=== PATIENT | female | born 1935 | race Caucasian/White ===

== ENCOUNTER 2018-01-30 15:51 | Observation (INO) | payer MEDICARE ==
[2018-01-30] MEDS ORDERED: SODIUM CHLORIDE 0.9% 1,000 ML IV ONE (16:36)
--- NOTE | 2018-01-30 16:39 | ED ---
General Adult HPI - General Chief complaint: Recheck/Abnormal Lab/Rx Stated complaint: Altered mental status Time Seen by Provider: 01/30/18 16:14 Source: patient, EMS, RN notes reviewed Mode of arrival: EMS Limitations: no limitations - History of Present Illness Initial comments: Patient is a pleasant 82-year-old female presenting to the emergency Department with complaints of change in mental status. Majority of history is taken from the family. Patient reportedly was confused and they were sitting down for a meal. Symptoms lasted close to a half an hour and then they called EMS. Patient seems to be doing fine at this time. Family was asking the patient questions and she would not respond or respond inappropriately. Patient states she felt like she could not hear them. Patient was alert the whole time. EMS found blood sugar of 60. Patient has had low blood sugar previously without similar confusion. No isolated area of weakness. - Related Data Home Medications Medication Instructions Recorded Confirmed Calcium Carbonate 500 mg PO DAILY 01/30/18 01/30/18 Cyanocobalamin [Vitamin B-12] 500 mcg PO DAILY 01/30/18 01/30/18 Donepezil HCl [Aricept] 5 mg PO DAILY 01/30/18 01/30/18 Ergocalciferol [Vitamin D2] 50,000 unit PO Q30D 01/30/18 01/30/18 Ferrous Sulfate [Feosol] 325 mg PO BID 01/30/18 01/30/18 L.acidoph,Paracasei, B.lactis 1 cap PO DAILY 01/30/18 01/30/18 [Probiotic] Losartan [Cozaar] 25 mg PO DAILY 01/30/18 01/30/18 Magnesium Oxide [Baum] 500 mg PO DAILY 01/30/18 01/30/18 Pravastatin Sodium [Pravachol] 40 mg PO DAILY 01/30/18 01/30/18 Rivaroxaban [Xarelto] 15 mg PO DAILY 01/30/18 01/30/18 cycloSPORINE [Restasis] 1 drop BOTH EYES BID 01/30/18 01/30/18 Allergies Allergy/AdvReac Type Severity Reaction Status Date / Time allopurinol Allergy Unknown Verified 01/30/18 16:52 febuxostat [From Uloric] Allergy Unknown Verified 01/30/18 16:52 levofloxacin [From Levaquin] Allergy Unknown Verified 01/30/18 16:52 Sulfa (Sulfonamide Allergy Unknown Verified 01/30/18 16:52 Antibiotics) Review of Systems ROS Statement: Those systems with pertinent positive or pertinent negative responses have been documented in the HPI. ROS Other: All systems not noted in ROS Statement are negative. Constitutional: Denies: fever Eyes: Denies: eye pain ENT: Denies: ear pain Respiratory: Denies: cough Cardiovascular: Denies: chest pain Endocrine: Denies: fatigue Gastrointestinal: Denies: abdominal pain Genitourinary: Denies: dysuria Musculoskeletal: Denies: back pain Skin: Denies: rash Neurological: Reports: confusion. Denies: weakness Past Medical History Past Medical History: Diabetes Mellitus, Hyperlipidemia, Hypertension Past Surgical History: Orthopedic Surgery Past Psychological History: No Psychological Hx Reported Smoking Status: Never smoker Past Alcohol Use History: None Reported Past Drug Use History: None Reported General Exam Limitations: no limitations General appearance: alert, in no apparent distress Head exam: Present: atraumatic Eye exam: Present: normal appearance, PERRL, EOMI ENT exam: Present: normal oropharynx Neck exam: Present: normal inspection Respiratory exam: Present: normal lung sounds bilaterally Cardiovascular Exam: Present: regular rate, normal rhythm Expanded Peripheral pulses: 2+: Radial (R), Radial (L), Dorsalis Pedis (R), Dorsalis Pedis (L) GI/Abdominal exam: Present: soft. Absent: tenderness Extremities exam: Present: normal inspection Neurological exam: Present: alert, oriented X3, CN II-XII intact. Absent: motor sensory deficit Expanded Neurological exam: Present: protecting the airway Patient oriented to: Present: person, place, time Speech: Present: fluid speech Cranial nerves: EOM's Intact: Normal, Facial Sensation: Normal Cerebellar function: Finger to Nose: Normal Sensory exam: Upper Extremity Light Touch: Normal, Lower Extremity Light Touch: Normal Motor strength exam: RUE: 5, LUE: 5, RLE: 5, LLE: 5 Eye Response: (4) open spontaneously Motor Response: (6) obeys commands Verbal Response: (5) oriented Psychiatric exam: Present: normal affect, normal mood Skin exam: Present: normal color Course Vital Signs 01/30/18 01/30/18 15:59 18:04 Temperature 97.6 F 98.2 F Pulse Rate 81 81 Respiratory 18 18 Rate Blood Pressure 151/53 159/64 O2 Sat by Pulse 99 97 Oximetry Medical Decision Making - Medical Decision Making Patient reevaluated and resting comfortably in bed. Patient and family updated. Daughter is convinced that symptoms are not related to hypoglycemia secondary to patient having long-standing diabetes and previous blood sugars in the 60s without similar problems. Case was discussed in detail with Dr. guillory, who will admit covered for Dr. arnett, who admits for Dr. Bernal. - Lab Data Result diagrams: 01/30/18 16:11 01/30/18 16:11 Lab Results 01/30/18 01/30/18 01/30/18 Range/Units 16:10 16:11 16:11 WBC 10.2 (3.8-10.6) k/uL RBC 3.49 L (3.80-5.40) m/uL Hgb 10.8 L (11.4-16.0) gm/dL Hct 33.2 L (34.0-46.0) % MCV 95.3 (80.0-100.0) fL MCH 31.0 (25.0-35.0) pg MCHC 32.5 (31.0-37.0) g/dL RDW 14.1 (11.5-15.5) % Plt Count 183 (150-450) k/uL Neutrophils % 85 % Lymphocytes % 10 % Monocytes % 4 % Eosinophils % 1 % Basophils % 0 % Neutrophils # 8.7 H (1.3-7.7) k/uL Lymphocytes # 1.0 (1.0-4.8) k/uL Monocytes # 0.4 (0-1.0) k/uL Eosinophils # 0.1 (0-0.7) k/uL Basophils # 0.0 (0-0.2) k/uL PT (9.0-12.0) sec INR (<1.2) APTT (22.0-30.0) sec Sodium (137-145) mmol/L Potassium (3.5-5.1) mmol/L Chloride (98-107) mmol/L Carbon Dioxide (22-30) mmol/L Anion Gap mmol/L BUN (7-17) mg/dL Creatinine (0.52-1.04) mg/dL Est GFR (CKD-EPI)AfAm (>60 ml/min/1.73 sqM) Est GFR (CKD-EPI)NonAf (>60 ml/min/1.73 sqM) Glucose (74-99) mg/dL POC Glucose (mg/dL) 120 H (75-99) mg/dL POC Glu [employer] Homa Larson Calcium (8.4-10.2) mg/dL Total Bilirubin (0.2-1.3) mg/dL AST (14-36) U/L ALT (9-52) U/L Alkaline Phosphatase (38-126) U/L Total Creatine Kinase 97 (30-135) U/L CK-MB (CK-2) 3.7 H (0.0-2.4) ng/mL CK-MB (CK-2) Rel Index 3.8 Troponin I 0.020 (0.000-0.034) ng/mL Total Protein (6.3-8.2) g/dL Albumin (3.5-5.0) g/dL Urine Color Urine Appearance (Clear) Urine pH (5.0-8.0) Ur Specific [place] (1.001-1.035) Urine Protein (Negative) Urine Glucose (UA) (Negative) Urine Ketones (Negative) Urine Blood (Negative) Urine Nitrite (Negative) Urine Bilirubin (Negative) Urine Urobilinogen (<2.0) mg/dL Ur Leukocyte Esterase (Negative) Urine Opiates Screen (NotDetected) Ur Oxycodone Screen (NotDetected) Urine Methadone Screen (NotDetected) Ur Propoxyphene Screen (NotDetected) Ur Barbiturates Screen (NotDetected) U Tricyclic Antidepress (NotDetected) Ur Phencyclidine Scrn (NotDetected) Ur Amphetamines Screen (NotDetected) U Methamphetamines Scrn (NotDetected) U Benzodiazepines Scrn (NotDetected) Urine Cocaine Screen (NotDetected) U Marijuana (THC) Screen (NotDetected) 01/30/18 01/30/18 01/30/18 Range/Units 16:11 16:11 16:51 WBC (3.8-10.6) k/uL RBC (3.80-5.40) m/uL Hgb (11.4-16.0) gm/dL Hct (34.0-46.0) % MCV (80.0-100.0) fL MCH (25.0-35.0) pg MCHC (31.0-37.0) g/dL RDW (11.5-15.5) % Plt Count (150-450) k/uL Neutrophils % % Lymphocytes % % Monocytes % % Eosinophils % % Basophils % % Neutrophils # (1.3-7.7) k/uL Lymphocytes # (1.0-4.8) k/uL Monocytes # (0-1.0) k/uL Eosinophils # (0-0.7) k/uL Basophils # (0-0.2) k/uL PT 12.1 H (9.0-12.0) sec INR 1.3 H (<1.2) APTT 23.6 (22.0-30.0) sec Sodium 142 (137-145) mmol/L Potassium 4.2 (3.5-5.1) mmol/L Chloride 107 (98-107) mmol/L Carbon Dioxide 25 (22-30) mmol/L Anion Gap 10 mmol/L BUN 28 H (7-17) mg/dL Creatinine 0.95 (0.52-1.04) mg/dL Est GFR (CKD-EPI)AfAm 66 (>60 ml/min/1.73 sqM) Est GFR (CKD-EPI)NonAf 57 (>60 ml/min/1.73 sqM) Glucose 96 (74-99) mg/dL POC Glucose (mg/dL) (75-99) mg/dL POC Glu [employer] ID Calcium 9.6 (8.4-10.2) mg/dL Total Bilirubin 0.3 (0.2-1.3) mg/dL AST 43 H (14-36) U/L ALT 34 (9-52) U/L Alkaline Phosphatase 40 (38-126) U/L Total Creatine Kinase (30-135) U/L CK-MB (CK-2) (0.0-2.4) ng/mL CK-MB (CK-2) Rel Index Troponin I (0.000-0.034) ng/mL Total Protein 6.5 (6.3-8.2) g/dL Albumin 3.8 (3.5-5.0) g/dL Urine Color Urine Appearance (Clear) Urine pH (5.0-8.0) Ur Specific [place] (1.001-1.035) Urine Protein (Negative) Urine Glucose (UA) (Negative) Urine Ketones (Negative) Urine Blood (Negative) Urine Nitrite (Negative) Urine Bilirubin (Negative) Urine Urobilinogen (<2.0) mg/dL Ur Leukocyte Esterase (Negative) Urine Opiates Screen Not Detected (NotDetected) Ur Oxycodone Screen Not Detected (NotDetected) Urine Methadone Screen Not Detected (NotDetected) Ur Propoxyphene Screen Not Detected (NotDetected) Ur Barbiturates Screen Not Detected (NotDetected) U Tricyclic Antidepress Not Detected (NotDetected) Ur Phencyclidine Scrn Not Detected (NotDetected) Ur Amphetamines Screen Not Detected (NotDetected) U Methamphetamines Scrn Not Detected (NotDetected) U Benzodiazepines Scrn Not Detected (NotDetected) Urine Cocaine Screen Not Detected (NotDetected) U Marijuana (THC) Screen Not Detected (NotDetected) 01/30/18 Range/Units 16:51 WBC (3.8-10.6) k/uL RBC (3.80-5.40) m/uL Hgb (11.4-16.0) gm/dL Hct (34.0-46.0) % MCV (80.0-100.0) fL MCH (25.0-35.0) pg MCHC (31.0-37.0) g/dL RDW (11.5-15.5) % Plt Count (150-450) k/uL Neutrophils % % Lymphocytes % % Monocytes % % Eosinophils % % Basophils % % Neutrophils # (1.3-7.7) k/uL Lymphocytes # (1.0-4.8) k/uL Monocytes # (0-1.0) k/uL Eosinophils # (0-0.7) k/uL Basophils # (0-0.2) k/uL PT (9.0-12.0) sec INR (<1.2) APTT (22.0-30.0) sec Sodium (137-145) mmol/L Potassium (3.5-5.1) mmol/L Chloride (98-107) mmol/L Carbon Dioxide (22-30) mmol/L Anion Gap mmol/L BUN (7-17) mg/dL Creatinine (0.52-1.04) mg/dL Est GFR (CKD-EPI)AfAm (>60 ml/min/1.73 sqM) Est GFR (CKD-EPI)NonAf (>60 ml/min/1.73 sqM) Glucose (74-99) mg/dL POC Glucose (mg/dL) (75-99) mg/dL POC Glu [employer] ID Calcium (8.4-10.2) mg/dL Total Bilirubin (0.2-1.3) mg/dL AST (14-36) U/L ALT (9-52) U/L Alkaline Phosphatase (38-126) U/L Total Creatine Kinase (30-135) U/L CK-MB (CK-2) (0.0-2.4) ng/mL CK-MB (CK-2) Rel Index Troponin I (0.000-0.034) ng/mL Total Protein (6.3-8.2) g/dL Albumin (3.5-5.0) g/dL Urine Color Colorless Urine Appearance Clear (Clear) Urine pH 5.5 (5.0-8.0) Ur Specific [place] 1.004 (1.001-1.035) Urine Protein Negative (Negative) Urine Glucose (UA) Negative (Negative) Urine Ketones Negative (Negative) Urine Blood Negative (Negative) Urine Nitrite Negative (Negative) Urine Bilirubin Negative (Negative) Urine Urobilinogen <2.0 (<2.0) mg/dL Ur Leukocyte Esterase Negative (Negative) Urine Opiates Screen (NotDetected) Ur Oxycodone Screen (NotDetected) Urine Methadone Screen (NotDetected) Ur Propoxyphene Screen (NotDetected) Ur Barbiturates Screen (NotDetected) U Tricyclic Antidepress (NotDetected) Ur Phencyclidine Scrn (NotDetected) Ur Amphetamines Screen (NotDetected) U Methamphetamines Scrn (NotDetected) U Benzodiazepines Scrn (NotDetected) Urine Cocaine Screen (NotDetected) U Marijuana (THC) Screen (NotDetected) - Radiology Data Radiology results: report reviewed (Computed tomography scan of the brain shows no acute process. Atrophy is present.), image reviewed (Shows no heart failure. Coarse lung markings probably due to pulmonary fibrosis) Disposition Clinical Impression: Altered mental status Disposition: ADMITTED IP TO THIS HOSP Is patient prescribed a controlled substance at d/c from ED?: No Referrals: Richard Bernal MD [Primary Care Provider] - 1-2 days Decision Time: 18:25
[2018-01-30 16:50] LABS: Basophils % (A) 0 %; Eosinophils # (A) 0.1 k/uL (0-0.7); Eosinophils % (A) 1 %; HCT 33.2 % (34.0-46.0); HGB 10.8 gm/dL (11.4-16.0); Lymphocytes % (A) 10 %; MCHC 32.5 g/dL (31.0-37.0); MCV 95.3 fL (80.0-100.0); Mean Platelet Volume 7.4; Monocytes # (A) 0.4 k/uL (0-1.0); Monocytes % (A) 4 %; Neutrophils # (A) 8.7 k/uL (1.3-7.7); Neutrophils % (A) 85 %; Platelet Count 183 k/uL (150-450); RBC 3.49 m/uL (3.80-5.40); RDW 14.1 % (11.5-15.5); WBC 10.2 k/uL (3.8-10.6)
[2018-01-30 16:53] LABS: Glucose,Whole Blood 120 mg/dL (75-99)
[2018-01-30 16:58] LABS: INR 1.3 (<1.2); Partial Thromboplastin Time 23.6 sec (22.0-30.0); Prothrombin Time 12.1 sec (9.0-12.0)
[2018-01-30 16:59] LABS: Albumin 3.8 g/dL (3.5-5.0); Calcium 9.6 mg/dL (8.4-10.2); Potassium 4.2 mmol/L (3.5-5.1); Total Bilirubin 0.3 mg/dL (0.2-1.3); Total Protein 6.5 g/dL (6.3-8.2)
[2018-01-30 17:02] LABS: Appearance,Urine Clear (Clear); Bilirubin,Urine Negative (Negative); Blood,Urine Negative (Negative); Color,Urine Colorless; Glucose,Urine (UA) Negative (Negative); Ketones,Urine Negative (Negative); Leukocyte Esterase,Urine Negative (Negative); Nitrite,Urine Negative (Negative); PH, Urine 5.5 (5.0-8.0); Protein,Urine Negative (Negative); Specific Gravity,Urine 1.004 (1.001-1.035); Urobilinogen,Urine <2.0 mg/dL (<2.0)
[2018-01-30 17:11] LABS: Amphetamine Screen,Urine Not Detected (NotDetected); Barbiturate Screen,Urine Not Detected (NotDetected); Benzodiazepines Screen,Urine Not Detected (NotDetected); Cocaine Screen,Urine Not Detected (NotDetected); Methadone Screen, Urine Not Detected (NotDetected); Opiate Screen,Urine Not Detected (NotDetected); Oxycodone Screen, Urine Not Detected (NotDetected); Phencyclidine Screen,Urine Not Detected (NotDetected); Tricyclic Antidepressant,Urine Not Detected (NotDetected); Urn Cannabinoid Scrn Not Detected (NotDetected)
[2018-01-30 17:26] LABS: Creatine Kinase MB 3.7 ng/mL (0.0-2.4); Troponin I 0.02 ng/mL (0.000-0.034)
--- NOTE | 2018-01-30 17:28 | CT ---
EXAMINATION TYPE: CT brain wo con DATE OF EXAM: 01/30/2018 COMPARISON: None HISTORY: ams, confusion CT DLP: 981.7 mGycm Automated exposure control for dose reduction was used. FINDINGS: There is cerebral cortical atrophy. There is no mass effect nor midline shift. There is no sign of in tracranial hemorrhage. The calvarium is intact. IMPRESSION: NEGATIVE CT SCAN OF THE BRAIN. CEREBRAL ATROPHY.
--- NOTE | 2018-01-30 17:36 | XR ---
EXAMINATION TYPE: XR chest 2V DATE OF EXAM: 01/30/2018 COMPARISON: November 13, 2009 HISTORY: Confusion TECHNIQUE: Frontal and lateral views of the chest are obtained. FINDINGS: Heart is normal. There is coarsening of interstitial pulmonary markings. There is no pulmo nary consolidation. Costophrenic angles are clear. Thoracic aorta is atheromatous. IMPRESSION: No heart failure. Coarse lung markings probably due to pulmonary fibrosis that has progr essed compared to old exam. Acute interstitial pneumonia is possible.
[2018-01-30] MEDS ORDERED: SODIUM CHLORIDE 0.9% 500 ML IV STA (17:51)
[2018-01-30] MEDS ORDERED: ASPIRIN 325 MG TAB PO STA (18:25)
[2018-01-30] MEDS: SODIUM CHLORIDE 0.9% 1,000 ML IV SCH (19:23)
[2018-01-30] MEDS ORDERED: ACETAMINOPHEN TAB 325 MG TAB PO STA (20:06)
--- NOTE | 2018-01-30 20:09 | US ---
EXAMINATION TYPE: US carotid duplex BILAT DATE OF EXAM: 01/30/2018 COMPARISON: NONE CLINICAL HISTORY: Stenosis. Stenosis TIA EXAM MEASUREMENTS: RIGHT: Peak Systolic Velocity (PSV) cm/sec ----- Right CCA: 72.6 ----- Right ICA: 153.1 ----- Right ECA: 102.3 ICA/CCA ratio: 2.1 RIGHT: End Diastole cm/sec ----- Right CCA: 17.3 ----- Right ICA: 36.9 ----- Right ECA: 0 LEFT: Peak Systolic Velocity (PSV) cm/sec ----- Left CCA: 78.4 ----- Left ICA: 101.6 ----- Left ECA: 80.6 ICA/CCA ratio: 1.3 LEFT: End Diastole cm/sec ----- Left CCA: 17.3 ----- Left ICA: 27.3 ----- Left ECA: 0 VERTEBRALS (direction of flow): Right Vertebral: Antegrade Left Vertebral: Antegrade Rhythm: Plaque Right bulb and Prox ICA. Elevated velocities in Right ICA. IMPRESSION: There is an elevated velocity at the right internal carotid artery thought to be due to inaccurate elevated Doppler angle. No significant plaque is seen. There is antegrade flow in the vertebral arteries. Images and measurements suggest less than 50% stenosis in both internal carotid arteries. Criteria for Assigning % of Stenosis / Diameter reduction (Estimation based on the indirect measurements of the internal carotid artery velocities (ICA PSV). 1. Normal (no stenosis)=ICA PSV < 125 cm/s: ratio < 2.0: ICA EDV<40 cm/s. 2. Less than 50% stenosis=ICA PSV < 125 cm/s: ratio < 2.0: ICA EDV<40 cm/s. 3. 50 to 69% stenosis=ICA PSV of 125 to 230 cm/s: ration 2.0 ? 4.0: ICA EDV 40-100 cm/s. 4. Greater than 70% stenosis to near occlusion= ICA PSV > 230 cm/s: ratio > 4.0: ICA EDV > 100 cm/s. 5. Near occlusion= ICA PSV velocities may be low or undetectable: variable ratio and ICA EDV. 6. Total occlusion=unable to detect flow.
[2018-01-30 20:17] LABS: Glucose,Whole Blood 158 mg/dL (75-99)
[2018-01-30] MEDS ORDERED: NALOXONE 0.4 MG/ML 1 ML VIAL IV PRN (21:42)
--- NOTE | 2018-01-30 22:05 | P.HPIM ---
History of Present Illness H&P Date: 01/30/18 Chief Complaint: confusion 82-year-old female with history of diabetes pump, hypertension, venous thromboembolism with urology. Patient was on a road trip with family when they stopped for lunch today. Family noticed that she was slightly confused that lasted over 30 minutes for which they called EMS who was later found her to have low blood sugar at around 60. Family was concerned regarding a stroke as they reported patient usually has low blood sugars in the 60s without any symptoms. Patient was having some difficulty walking along with confusion while sitting down having lunch at 2 PM with the family she reports that symptoms completely resolved after about 1 hour. Otherwise patient denies any focal neurologic deficits like numbness tingling or weakness anywhere. She denies any similar symptoms in the past. Denies any history of stroke. Currently patient feels completely fine and back to normal. She denies any chest pain or trouble breathing denies any coughing denies any fevers or chills. She denies any GI bleeding or melena. Further workup in the ED showed CAT scan of the brain no acute process, carotid Doppler showed no significant plaques bilaterally. Review of Systems Pertinent positives as noted in HPI. All other systems were reviewed and are negative Past Medical History Past Medical History: Diabetes Mellitus, Deep Vein Thrombosis (DVT), Hyperlipidemia, Hypertension Past Surgical History: Orthopedic Surgery Additional Past Surgical History / Comment(s): right knee replacement Past Psychological History: No Psychological Hx Reported Smoking Status: Never smoker Past Alcohol Use History: None Reported Past Drug Use History: None Reported - Past Family History family Additional Family Medical History / Comment(s): denies history of CAD or stroke Medications and Allergies Home Medications Medication Instructions Recorded Confirmed Type Calcium Carbonate 500 mg PO DAILY 01/30/18 01/30/18 History Cyanocobalamin [Vitamin B-12] 500 mcg PO DAILY 01/30/18 01/30/18 History Donepezil HCl [Aricept] 5 mg PO DAILY 01/30/18 01/30/18 History Ergocalciferol [Vitamin D2] 50,000 unit PO Q30D 01/30/18 01/30/18 History Ferrous Sulfate [Feosol] 325 mg PO BID 01/30/18 01/30/18 History L.acidoph,Paracasei, B.lactis 1 cap PO DAILY 01/30/18 01/30/18 History [Probiotic] Losartan [Cozaar] 25 mg PO DAILY 01/30/18 01/30/18 History Magnesium Oxide [Baum] 500 mg PO DAILY 01/30/18 01/30/18 History Pravastatin Sodium [Pravachol] 40 mg PO DAILY 01/30/18 01/30/18 History Rivaroxaban [Xarelto] 15 mg PO DAILY 01/30/18 01/30/18 History cycloSPORINE [Restasis] 1 drop BOTH EYES BID 01/30/18 01/30/18 History Allergies Allergy/AdvReac Type Severity Reaction Status Date / Time allopurinol Allergy Unknown Verified 01/30/18 16:52 febuxostat [From Uloric] Allergy Unknown Verified 01/30/18 16:52 levofloxacin [From Levaquin] Allergy Unknown Verified 01/30/18 16:52 Sulfa (Sulfonamide Allergy Unknown Verified 01/30/18 16:52 Antibiotics) Physical Exam Vitals: Vital Signs Temp Pulse Resp BP Pulse Ox 01/30/18 18:04 98.2 F 81 18 159/64 97 01/30/18 15:59 97.6 F 81 18 151/53 99 Intake and Output 01/30/18 01/30/18 01/30/18 06:59 14:59 22:59 Other: Weight 71.668 kg Constitutional: No acute distress, conversant, pleasant, well developed and nourished Eyes: Anicteric sclerae, moist conjunctiva, no lid-lag Pupils equal round reactive to light ENMT: NC/AT Oropharynx clear, no erythema, exudates, upper dentures Neck: Supple, FROM, no masses, or JVD No carotid bruits No thyromegaly Lungs: Clear to auscultation Clear to percussion Normal respiratory effort, no accessory muscle use Cardiovascular: Heart regular in rate and rhythm, systolic murmur, No gallops, or rubs No peripheral edema Abdominal: Soft Nontender, no guarding, rebound or rigidity Abdomen moving with respiration Normoactive bowel sounds No hepatomegaly, No splenomegaly No palpable mass No abdominal wall hernia noted Skin: Normal temperature, tone, texture, turgor No induration No subcutaneous nodules No rash, lesions No ulcers Extremities: No digital cyanosis No clubbing Pedal pulses intact and symmetrical Radial pulses intact and symmetrical No calf tenderness Psychiatric: Alert and oriented to person, place and time Appropriate affect fair judgment Neuro Muscles Strength 5/5 in all 4 extremities , patient ambulating without assistance Sensation to light touch grossly present throughout Cranial nerves II-XII grossly intact No focal sensory deficits cerebellar exam, finger nose is intact bilaterally Lymphatics: no palpable cervical or supraclavicular , or inguinal lymph nodes Results CBC & Chem 7: 01/30/18 16:11 01/30/18 16:11 Labs: Abnormal Lab Results - Last 24 Hours (Table) 01/30/18 01/30/18 01/30/18 Range/Units 16:10 16:11 16:11 RBC 3.49 L (3.80-5.40) m/uL Hgb 10.8 L (11.4-16.0) gm/dL Hct 33.2 L (34.0-46.0) % Neutrophils # 8.7 H (1.3-7.7) k/uL PT (9.0-12.0) sec INR (<1.2) BUN (7-17) mg/dL POC Glucose (mg/dL) 120 H (75-99) mg/dL AST (14-36) U/L CK-MB (CK-2) 3.7 H (0.0-2.4) ng/mL 01/30/18 01/30/18 01/30/18 Range/Units 16:11 16:11 20:09 RBC (3.80-5.40) m/uL Hgb (11.4-16.0) gm/dL Hct (34.0-46.0) % Neutrophils # (1.3-7.7) k/uL PT 12.1 H (9.0-12.0) sec INR 1.3 H (<1.2) BUN 28 H (7-17) mg/dL POC Glucose (mg/dL) 158 H (75-99) mg/dL AST 43 H (14-36) U/L CK-MB (CK-2) (0.0-2.4) ng/mL Assessment and Plan Assessment: 82 year old female with history of HTN, DM, VTE on blood thinners. admitted under observation with anticpitated length of stay of '<48 hrs, due to acute confusion that lasted for about 1 hour which is thought to be due to TIA vs hypoglycemia. patient was found to have low blood sugar of 60 by EMS, however ffamily was concerned that she had such low blood sugar readings in the past and was completely normal. thus further workup for her confusion was warranted. carotid doppler , no significant stenosis. CT no acute changes pending neuro evaluation and Echocardiogram Plan: acute encephalopathy, r/o TIA, vs metabolic causes like hypoglycemia acute hypoglycemia Diabetes mellitus on insulin sliding scale at home via insulin pump Hypertension currently controlled hyperlipidemia history of VTE on xarelto Anemia, patient denies any melena or bloody bowel movements, no baseline hemoglobin to compare, OP follow up with PCP admitted to observation neurology consult carotid doppler showed no significant stenosis CT of head no acute process check Echocardiogram neuro checks fall precautions hold anticoagulation for 24-48 hours, resume upon discharge if no contraindications check TSH, lipid profile, B12 level, A1C PT/OT SCDs for mechanical DVT prophylaxis insulin sliding scale check morning labs Surrogate decision-maker: lindy Erazo CODE STATUS:No code Discussed with: Patient, ER, RN Anticipated discharge: <[address]: Home A total of 50 minutes was spent on the care of this complex patient more than 50 % of the time was spent in counseling and care coordination.
[2018-01-31 02:12] LABS: Glucose,Whole Blood 148 mg/dL (75-99)
[2018-01-31 02:13] VITALS: BMI 31.5
[2018-01-31 04:06] LABS: Hemoglobin A1C 5.7 % (4.0-6.0)
[2018-01-31 05:48] LABS: Glucose,Whole Blood 124 mg/dL (75-99)
[2018-01-31] MEDS: INSULIN ASPART 100 UNIT/ML 1 ML 10 ML VIAL SQ SCH ×4 (06:00→22:01)
[2018-01-31] MEDS: SODIUM CHLORIDE 0.9% 1,000 ML IV SCH ×2 (06:04→15:58)
[2018-01-31 07:55] LABS: Basophils % (A) 1 %; Eosinophils # (A) 0.2 k/uL (0-0.7); Eosinophils % (A) 3 %; HGB 10.6 gm/dL (11.4-16.0); Lymphocytes # (A) 1.2 k/uL (1.0-4.8); Lymphocytes % (A) 19 %; MCH 30.3 pg (25.0-35.0); MCHC 31.3 g/dL (31.0-37.0); MCV 96.6 fL (80.0-100.0); Mean Platelet Volume 6.7; Monocytes # (A) 0.3 k/uL (0-1.0); Monocytes % (A) 4 %; Neutrophils # (A) 4.5 k/uL (1.3-7.7); Neutrophils % (A) 72 %; Platelet Count 160 k/uL (150-450); RBC 3.52 m/uL (3.80-5.40); RDW 14.1 % (11.5-15.5); WBC 6.2 k/uL (3.8-10.6)
[2018-01-31 08:10] LABS: Albumin 3.3 g/dL (3.5-5.0); Potassium 4.6 mmol/L (3.5-5.1); Total Bilirubin 0.3 mg/dL (0.2-1.3); Total Protein 5.8 g/dL (6.3-8.2)
[2018-01-31] MEDS: DONEPEZIL 5 MG TAB PO SCH (08:31)
[2018-01-31] MEDS: FERROUS SULFATE 325 MG TAB PO SCH ×2 (08:31→19:39)
[2018-01-31] MEDS: cycloSPORINE 0.05% OPHTH 0.4 ML DROPERETTE BOTH EYES SCH ×2 (08:32→19:39)
[2018-01-31] MEDS: ASPIRIN 325 MG TAB PO SCH (08:32)
[2018-01-31] MEDS: LOSARTAN 25 MG TAB PO SCH (08:33)
[2018-01-31] MEDS: PRAVASTATIN SODIUM 40 MG TAB PO SCH (08:33)
[2018-01-31] MEDS ORDERED: FAMOTIDINE 20 MG TAB PO SCH (09:00)
[2018-01-31 11:46] LABS: Glucose,Whole Blood 169 mg/dL (75-99)
--- NOTE | 2018-01-31 14:18 | P.PN ---
Subjective Progress Note Date: 01/31/18 The patient was seen and examined at the bedside. The patient notes that her symptoms had resolved within minutes of arrival of the EMS, and have not recurred since. She is presently in good spirits and denying any active complaints including confusion, slurred speech, weakness, numbness, tingling, dizziness, cough, chest pain, shortness of breath, nausea, vomiting, abdominal pain, diarrhea, diaphoresis, or tremors. Patient will be evaluated by neurology and is scheduled to undergo echocardiogram. life educator was also consulted to evaluate patient's insulin pump. Objective - Vital Signs Vital signs: Vital Signs Temp 97.1 F L 01/31/18 11:26 Pulse 79 01/31/18 12:00 Resp 16 01/31/18 12:00 BP 127/69 01/31/18 11:26 Pulse Ox 97 01/31/18 11:26 Intake & Output 01/30/18 01/31/18 01/31/18 18:59 06:59 18:59 Intake Total 1050 240 Balance 1050 240 Weight 71.668 kg 73.3 kg 73.3 kg Intake: Intake, IV Titration 1050 Amount Sodium Chloride 0.9% 1, 1050 000 ml @ 100 mls/hr IV . Q10H HECTOR Rx#:[id number] Oral 240 Other: # Voids 2 - Exam General: Non-toxic, in no acute distress HEENT: NC/AT, anicteric sclerae, moist conjunctiva, no lid-lag, PERRLA, oropharynx clear, no erythema, exudates Cardiovascular: S1/S2 wnl, no murmurs, rubs, or gallops Lungs: Clear to auscultation, normal respiratory effort, no accessory muscle use Abdominal: Soft, nontender, non-distended, no guarding, rebound, or rigidity, normoactive bowel sounds Skin: Warm, dry Extremities: No edema or contractures Psychiatric: Alert and oriented to person, place and time, appropriate affect, Intact judgment Neuro: CN II-XII grossly intact, no focal motor deficits - Labs CBC & Chem 7: 01/31/18 07:32 01/31/18 07:32 Labs: Abnormal Lab Results - Last 24 Hours (Table) 01/30/18 01/30/18 01/30/18 Range/Units 16:10 16:11 16:11 RBC 3.49 L (3.80-5.40) m/uL Hgb 10.8 L (11.4-16.0) gm/dL Hct 33.2 L (34.0-46.0) % Neutrophils # 8.7 H (1.3-7.7) k/uL PT (9.0-12.0) sec INR (<1.2) Chloride (98-107) mmol/L BUN (7-17) mg/dL Glucose (74-99) mg/dL POC Glucose (mg/dL) 120 H (75-99) mg/dL AST (14-36) U/L Alkaline Phosphatase (38-126) U/L CK-MB (CK-2) 3.7 H (0.0-2.4) ng/mL Total Protein (6.3-8.2) g/dL Albumin (3.5-5.0) g/dL 01/30/18 01/30/18 01/30/18 Range/Units 16:11 16:11 20:09 RBC (3.80-5.40) m/uL Hgb (11.4-16.0) gm/dL Hct (34.0-46.0) % Neutrophils # (1.3-7.7) k/uL PT 12.1 H (9.0-12.0) sec INR 1.3 H (<1.2) Chloride (98-107) mmol/L BUN 28 H (7-17) mg/dL Glucose (74-99) mg/dL POC Glucose (mg/dL) 158 H (75-99) mg/dL AST 43 H (14-36) U/L Alkaline Phosphatase (38-126) U/L CK-MB (CK-2) (0.0-2.4) ng/mL Total Protein (6.3-8.2) g/dL Albumin (3.5-5.0) g/dL 01/31/18 01/31/18 01/31/18 Range/Units 02:10 05:44 07:32 RBC (3.80-5.40) m/uL Hgb (11.4-16.0) gm/dL Hct (34.0-46.0) % Neutrophils # (1.3-7.7) k/uL PT (9.0-12.0) sec INR (<1.2) Chloride 111 H (98-107) mmol/L BUN 20 H (7-17) mg/dL Glucose 216 H (74-99) mg/dL POC Glucose (mg/dL) 148 H 124 H (75-99) mg/dL AST (14-36) U/L Alkaline Phosphatase 37 L (38-126) U/L CK-MB (CK-2) (0.0-2.4) ng/mL Total Protein 5.8 L (6.3-8.2) g/dL Albumin 3.3 L (3.5-5.0) g/dL 01/31/18 01/31/18 Range/Units 07:32 11:40 RBC 3.52 L (3.80-5.40) m/uL Hgb 10.6 L (11.4-16.0) gm/dL Hct (34.0-46.0) % Neutrophils # (1.3-7.7) k/uL PT (9.0-12.0) sec INR (<1.2) Chloride (98-107) mmol/L BUN (7-17) mg/dL Glucose (74-99) mg/dL POC Glucose (mg/dL) 169 H (75-99) mg/dL AST (14-36) U/L Alkaline Phosphatase (38-126) U/L CK-MB (CK-2) (0.0-2.4) ng/mL Total Protein (6.3-8.2) g/dL Albumin (3.5-5.0) g/dL Assessment and Plan Plan: Altered mental status, likely secondary to hypoglycemia versus TIA, resolved - Patient notes her last A1C was 5.8. Will recheck. - F/u Neurology consult and Diabetic nurse educator - Pending Echocardiogram - Carotid duplex unremarkable - Neurochecks - C/w insulin sliding scale - C/w Aspirin 325 mg qd for now - Continue to hold Xarelto for now. HTN, controlled - C/w Losartan 25 mg qd HLD - C/w Pravachol 40 mg qd DVT//GI prophylaxis - IPCDs - No indication for GI prophylaxis Discussed with: Patient Anticipated discharge date: 02/01/[address]: Home w/ self-care A total of 35 minutes was spent on the care of this complex patient more than 50 % of the time was spent in counseling and care coordination.
--- NOTE | 2018-01-31 14:31 | ECHOF ---
Referral Reason:Thrombus MEASUREMENTS -------- HEIGHT: 180.3 cm WEIGHT: 73.0 kg BP: 124/58 IVSd: 1.1 cm (0.6 - 1.1) LVIDd: 4.0 cm (3.9 - 5.3) LVPWd: 1.5 cm (0.6 - 1.1) IVSs: 1.8 cm LVIDs: 1.7 cm LVPWs: 1.6 cm LAESV Index (A-L): 21.77 ml/m Ao Diam: 2.4 cm (2.0 - 3.7) AV Cusp: 1.3 cm (1.5 - 2.6) LA Diam: 2.8 cm (2.7 - 3.8) MV EXCURSION: 8.460 mm (> 18.000) MV EF SLOPE: 27 mm/s (70 - 150) EPSS: 1.5 cm MV E Claude: 1.65 m/s MV DecT: 280 ms MV A Claude: 1.26 m/s MV E/A Ratio: 1.30 AV maxP.67 mmHg AV meanP.15 mmHg AR PHT: 605 ms RAP: 5.00 mmHg RVSP: 42.93 mmHg FINDINGS -------- Sinus rhythm. This was a technically good study. The left ventricular size is normal. There is mild concentric left ventricular hypertrophy. Overa ll left ventricular systolic function is normal with, an EF between 55 - 60 %. The right ventricle is normal in size and function. The left atrial size is normal. The right atrium is normal in size. Aortic valve is trileaflet and is moderately thickened. Trace amount of aortic regurgitation. Th ere is moderate aortic stenosis present. Peak/mean gradient across the Aortic Valve is 36.67mmHg / 21.15mmHg. The mitral valve leaflets are moderately thickened. Mild mitral annular calcification present. Mi ld mitral regurgitation is present. The peak and mean MV gradients are 14.29mmHg 5.08mmHg as measu red by doppler. Moderate to severe tricuspid regurgitation present. There is mild pulmonary hypertension. The rig ht ventricular systolic pressure, as measured by Doppler, is 42.93mmHg. Pulmonic valve appears structurally normal. The aortic root size is normal. Normal inferior vena cava with normal inspiratory collapse consistent with estimated right atrial pre ssure of 5 mmHg. The pericardium is normal. CONCLUSIONS -------- 1. Sinus rhythm. 2. This was a technically good study. 3. The left ventricular size is normal. 4. There is mild concentric left ventricular hypertrophy. 5. Overall left ventricular systolic function is normal with, an EF between 55 - 60 %. 6. The right ventricle is normal in size and function. 7. The left atrial size is normal. 8. The right atrium is normal in size. 9. Aortic valve is trileaflet and is moderately thickened. 10. Trace amount of aortic regurgitation. 11. There is moderate aortic stenosis present. 12. Peak/mean gradient across the Aortic Valve is 36.67mmHg / 21.15mmHg. 13. The mitral valve leaflets are moderately thickened. 14. Mild mitral annular calcification present. 15. Mild mitral regurgitation is present. 16. The peak and mean MV gradients are 14.29mmHg 5.08mmHg as measured by doppler. 17. Moderate to severe tricuspid regurgitation present. 18. There is mild pulmonary hypertension. 19. The right ventricular systolic pressure, as measured by Doppler, is 42.93mmHg. 20. Pulmonic valve appears structurally normal. 21. The aortic root size is normal. 22. Normal inferior vena cava with normal inspiratory collapse consistent with estimated right atrial pressure of 5 mmHg. 23. The pericardium is normal. SOUNDING DEVICE OPERATOR: Christina Jesus RDCS
[2018-01-31 16:01] LABS: Glucose,Whole Blood 190 mg/dL (75-99)
[2018-01-31 19:44] VITALS: RESP 18
[2018-01-31 20:57] LABS: Glucose,Whole Blood 211 mg/dL (75-99)
[2018-01-31] MEDS ORDERED: ACETAMINOPHEN TAB 325 MG TAB PO PRN (22:06)
[2018-02-01] MEDS: SODIUM CHLORIDE 0.9% 1,000 ML IV SCH ×2 (01:17→14:24)
[2018-02-01 05:52] LABS: Glucose,Whole Blood 142 mg/dL (75-99)
[2018-02-01 06:02] LABS: HCT 32.2 % (34.0-46.0); HGB 10.2 gm/dL (11.4-16.0); MCH 30.9 pg (25.0-35.0); MCHC 31.7 g/dL (31.0-37.0); MCV 97.4 fL (80.0-100.0); Mean Platelet Volume 7.1; Platelet Count 168 k/uL (150-450); RBC 3.31 m/uL (3.80-5.40); WBC 6.3 k/uL (3.8-10.6)
[2018-02-01 06:15] LABS: Anion Gap 4 mmol/L; Blood Urea Nitrogen 16 mg/dL (7-17); Calcium 9.3 mg/dL (8.4-10.2); Carbon Dioxide 26 mmol/L (22-30); Chloride 113 mmol/L (98-107); Glucose 131 mg/dL (74-99); Potassium 4.7 mmol/L (3.5-5.1); Sodium 143 mmol/L (137-145)
[2018-02-01] MEDS: INSULIN ASPART 100 UNIT/ML 1 ML 10 ML VIAL SQ SCH (06:17)
[2018-02-01] MEDS: ASPIRIN 325 MG TAB PO SCH (08:12)
[2018-02-01] MEDS: LOSARTAN 25 MG TAB PO SCH (08:13)
[2018-02-01] MEDS: PRAVASTATIN SODIUM 40 MG TAB PO SCH (08:13)
[2018-02-01] MEDS: DONEPEZIL 5 MG TAB PO SCH (08:13)
[2018-02-01] MEDS: FERROUS SULFATE 325 MG TAB PO SCH (08:14)
[2018-02-01] MEDS ORDERED: FAMOTIDINE 20 MG TAB PO SCH (09:00)
[2018-02-01 12:31] LABS: Glucose,Whole Blood 184 mg/dL (75-99)
--- NOTE | 2018-02-01 13:51 | P.DS ---
Providers Date of admission: 01/30/18 18:26 Expected date of discharge: 02/01/18 Attending physician: Felicity Xiong MD Primary care physician: Richard Cline [facility] Hospital Course: Patient is an 84-year-old female with a past history of diabetes (managed via insulin pump), HTN, and hx of VTE, who presented to the hospital for a brief period of confusion lasting 30 minutes notes that she was in her usual state of health and was busy moving furniture with her family when she became confused. She remembers using her meal-time insulin via the pump an hour prior and not being able to eat since she didn't anticipate a delay in getting her food. Her family members activated EMS, and upon arrival her FS was 60 and they gave the patient dextrose which resolved her symptoms. The patient denied weakness, numbness, slurred speech, visual deficits, blurred vision, or dizziness. She notes that her last A1C with her primary care physician was 5.8. Repeat A1C inpatient was 5.7. CT head was negative. Carotid duplex neg for significant stenosis. Echocardiogram showed LVEF 55-60% with mild LVH. The patient was evaluated by the diabetic nurse educator, and was advised to decrease her insulin pump regimen. The patient remained asymptomatic while in the hospital and is presently ready, and stable for discharge to home. Physical Examination General: Awake, alert, in no acute distress HEENT: NC/AT, anicteric sclerae, moist conjunctiva, no lid-lag, PERRLA, oropharynx clear, no erythema, exudates Cardiovascular: S1/S2 wnl, no murmurs, rubs, or gallops Lungs: Clear to auscultation, normal respiratory effort, no accessory muscle use Abdominal: Soft, nontender, non-distended, no guarding, rebound, or rigidity, normoactive bowel sounds Skin: Warm, dry Extremities: No edema or contractures Psychiatric: Alert and oriented to person, place and time, appropriate affect, Intact judgment Neuro: CN II-XI grossly intact, sensation to light touch grossly present throughout, no focal sensory deficits Discharge diagnosis: Altered mental status due to hypoglycemia, DM, HTN, HLD, Hx of VTE A total of 60 minutes of time were spent preparing this complex discharge summary. Pertinent Studies: Carotid duplex: No significant plaques in either internal carotid artery. CT head: Negative for acute intra-cranial abnormalities. Cerebral atrophy. Echocardiogram: LVEF 55-60%. Mild LVH. Patient Condition at Discharge: Stable Plan - Discharge Summary Discharge Rx Participant: No New Discharge Prescriptions: Continue L.acidoph,Paracasei, B.lactis [Probiotic] 1 cap PO DAILY cycloSPORINE [Restasis] 1 drop BOTH EYES BID Ferrous Sulfate [Iron (65 MG Elemental)] 325 mg PO BID Calcium Carbonate 500 mg PO DAILY Rivaroxaban [Xarelto] 15 mg PO DAILY Pravastatin Sodium [Pravachol] 40 mg PO DAILY Losartan [Cozaar] 25 mg PO DAILY Ergocalciferol [Vitamin D2 (DRISDOL)] 50,000 unit PO Q30D Donepezil HCl [Aricept] 5 mg PO DAILY Discontinued Cyanocobalamin [Vitamin B-12] 500 mcg PO DAILY Magnesium Oxide [Baum] 500 mg PO DAILY Discharge Medication List Calcium Carbonate 500 mg PO DAILY 01/30/18 [History] Donepezil HCl [Aricept] 5 mg PO DAILY 01/30/18 [History] Ergocalciferol [Vitamin D2 (DRISDOL)] 50,000 unit PO Q30D 01/30/18 [History] Ferrous Sulfate [Iron (65 MG Elemental)] 325 mg PO BID 01/30/18 [History] L.acidoph,Paracasei, B.lactis [Probiotic] 1 cap PO DAILY 01/30/18 [History] Losartan [Cozaar] 25 mg PO DAILY 01/30/18 [History] Pravastatin Sodium [Pravachol] 40 mg PO DAILY 01/30/18 [History] Rivaroxaban [Xarelto] 15 mg PO DAILY 01/30/18 [History] cycloSPORINE [Restasis] 1 drop BOTH EYES BID 01/30/18 [History] Follow up Appointment(s)/Referral(s): Richard Bernal MD [Primary Care Provider] - 1-2 days Activity/Diet/Wound Care/Special Instructions: Patient was seen by Diabetic nurse educator and was advised to decrease her basal insulin via insulin pump and to decrease her correctional insulins and to f/u with PMD within 1-2 days. Discharge Disposition: HOME SELF-CARE
[2018-02-01 14:22] VITALS: BP 138/70; PULSE 64; TEMP 97.5
[2018-02-01] MEDS: cycloSPORINE 0.05% OPHTH 0.4 ML DROPERETTE BOTH EYES SCH (14:24)
--- NOTE | 2018-02-02 11:10 | EEG ---
ELECTROENCEPHALOGRAM REPORT DATE OF SERVICE: 02/01/2018 REASON FOR TESTING: Altered mental status. DESCRIPTION OF THE PROCEDURE: This EEG was performed using a 21 channel digital electroencephalograph, following international 10-20 system. DESCRIPTION OF THE RECORDING: From the beginning of the tracing, with patient's eyes closed, the background rhythm was mostly consisting of 8 Hz alpha frequency in the posterior occipital leads. No obvious asymmetry is seen. Photic stimulation was performed with a minimal driving response seen. No pathological waves were elicited. Hyperventilation was not performed. Occasional movement and muscle artifacts are seen. No epileptiform discharges were seen. The patient remains awake throughout the tracing. INTERPRETATION: This awake EEG can be considered within normal limits. There was no asymmetry seen. No epileptiform discharges were noticed. The absence of epileptiform discharges does not rule out the diagnosis of epilepsy; therefore clinical correlation is recommended. MMANNALISE / DIANNEN: [id number] /
== END 2018-02-01 15:45 | disposition home or self-care (01) ==
LOC: EC 15:51 → 6SEL 18:26
PROVIDERS: ADMIT Internal Medicine; ATTEND Internal Medicine
DX: E11.649 Type 2 diabetes mellitus with hypoglycemia without coma (principal); G93.40 Encephalopathy, unspecified; I10 Essential (primary) hypertension; E78.5 Hyperlipidemia, unspecified; D64.9 Anemia, unspecified; Z96.41 Presence of insulin pump (external) (internal); Z79.01 Long term (current) use of anticoagulants; Z79.899 Other long term (current) drug therapy; Z88.1 Allergy status to other antibiotic agents; Z88.2 Allergy status to sulfonamides; Z88.8 Allergy status to other drugs, medicaments and biological substances; Z86.718 Personal history of other venous thrombosis and embolism; Z96.651 Presence of right artificial knee joint
CPT/HCPCS: 96361 ×11; 96360 ×2; 99285 ×2; 36415; 95816; 93306; 97162; 97166; 80061; 80053 ×2; 80048; 84443; 82607; 82550; 82553; 83735; 84484; 85025 ×2; 85027; 85610; 85730; 81003; 83090; 80306; 83036; 71046; 93880; 70450; G0378 ×3